=== PATIENT | male | born 1990 | race Caucasian/White ===

== ENCOUNTER 2020-01-25 06:24 | Emergency (ER) | payer SELFPAY ==
[~2020-01-25] VITALS: Ht 195.6 cm; Wt 103.4 kg
[2020-01-25 06:32] VITALS: Ht 195.6 cm; Wt 103.4 kg
[2020-01-25 08:14] VITALS: BP 139/98
== END 2020-01-25 08:14 | disposition home or self-care (01) ==
LOC: ED 06:24
DX: R07.89 Other chest pain (principal)
CPT/HCPCS: Q0092